=== PATIENT | female | born 1985 | race Caucasian/White ===

== ENCOUNTER 2022-10-26 17:07 | Emergency (ER) | payer BC, SELFPAY ==
--- NOTE | 2022-10-26 17:11 | ED.URI ---
HPI - URI/Sore Throat General Chief Complaint: Upper Respiratory Infection Stated Complaint: sob Time Seen by Provider: 10/26/22 17:40 Source: patient and RN notes reviewed Mode of arrival: ambulatory Limitations: no limitations History of Present Illness HPI Narrative: 37-year-old female presents with concern shortness of breath nasal congestion reports 2 week history of flu-like symptoms. She reports history of COPD, she has been hospitalized before for breathing problems. She reports she is out of her control medicine albuterol. MD elicited complaint: cough and sore throat Related Data Allergies Allergy/AdvReac Type Severity Reaction Status Date / Time No Known Allergies Allergy Verified 10/26/22 17:42 Review of Systems Review of Systems: CONSTITUTIONAL: Reports malaise. Denies chills, sweats, or fever. EYES: Denies visual changes, redness, or discharge. ENT: Reports rhinorrhea, congestion. Denies sinus pain, otalgia and sore throat. CARDIOVASCULAR: Denies chest pain, palpitations, or edema. RESPIRATORY: Reports cough, wheezing, dyspnea. GASTROINTESTINAL: Denies abdominal pain, nausea, vomiting, diarrhea SKIN: Denies rash or itching. MUSCULOSKELETAL: Denies myalgia. NEUROLOGIC: Denies headache. All systems reviewed & are unremarkable except as noted in HPI and below PMFSH Comments At time of signature, agree with nursing past medical, surgical, social and family history. There is no relevant family history pertinent to the presenting complaint Exam Narrative: GENERAL: Nontoxic-appearing and in no acute distress. HEAD: Normocephalic EYES: PERRLA, conjunctivae clear ENT: Nares clear, turbinates edematous and erythematous. Mucous membranes moist. TM pearly guerrero with dull light reflex bilaterally; no tragal tenderness. Oropharynx erythematous without lesions. Tonsils not enlarged and without exudate, no drooling, no hoarseness, no trismus, uvula midline. NECK: Supple. No lymphadenopathy CHEST: Wheeze throughout, scattered rhonchi, breath sounds equal. No rales, or stridor. No respiratory distress, speaks in full sentences. HEART: Regular rate and rhythm. No murmur heard. SKIN: Warm, dry, no rash. NEURO: Alert and oriented x3. PSYCH: Normal mood and affect Course Course Emergency Course: Patient is aware of diagnosis, understands and agrees to treatment plan. Anticipatory guidance given. Patient agrees to follow-up as directed and is aware of reasons to seek care at the emergency department. Portions of this record may have been created with voice recognition software Level of Care: Express Care Visit Vital Signs Vital signs: Reviewed. MDM - URI/Sore Throat MDM Narrative Medical decision making narrative: Differential diagnosis considered: Simental virus, strep pharyngitis, allergic rhinitis, upper respiratory tract infection, sinusitis, rhinosinusitis, nasopharyngitis. viral pharyngitis, otitis media, otitis externa, pneumonia, bronchitis, viral cough syndrome, viral syndrome, and influenza. Exam findings show no acute concerns or changes; patient is non-toxic appearing and is in no distress. Patient is appropriate for outpatient treatment and follow-up. Lab Data Attestation: I reviewed the patient's lab results. Critical Care Time Critical Care Time Critical Care Time: No Discharge Plan Discharge Clinical Impression: Acute exacerbation of chronic obstructive pulmonary disease Patient Disposition: Home, Self-Care Condition: Stable Instructions: Antibiotic Form, How to Stop Smoking (ED) Additional Instructions: Take medications as prescribed Cough syrup may cause drowsiness; avoid driving or take it at night time. Continue to Use inhaler as needed for cough, wheezing, shortness of breath or chest tightness. Seizure control medicine as prescribed Also, recommend symptomatic treatment includes: rest, fluids, and increase humidity of the air at home. Recommend Acetaminophen as directed on the jong
[2022-10-26 17:32] VITALS: BP 130/80; PULSE 102; RESP 16; TEMP 35.9; O2SAT 91
== END 2022-10-26 18:02 | disposition home or self-care (01) ==
PROVIDERS: Emergency Provider Nurse Practitioner
DX: J44.1 Chronic obstructive pulmonary disease with (acute) exacerbation (principal)
CPT/HCPCS: 99203; G0463

== ENCOUNTER 2023-08-29 17:42 | Emergency (ER) | payer BC, SELFPAY ==
[2023-08-29 18:04] VITALS: BP 129/52; PULSE 105; RESP 16; TEMP 36.3; O2SAT 97
--- NOTE | 2023-08-29 18:08 | ED.SKABFB ---
HPI - Skin/Abscess/Foreign Bdy General Chief complaint: Skin/Abscess/Foreign Body Stated complaint: Right Knee/Leg Irritation Time Seen by Provider: 08/29/23 18:05 Source: patient Mode of arrival: ambulatory Limitations: no limitations History of Present Illness HPI narrative: Preeti is a 38-year-old female patient presenting to the clinic today with complaints right leg swelling and redness times 2-3 days. States that the leg feels fevers however she denies any known fever or chills. She denies any chest pain or shortness of breath. 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 Took a 1000 mg of ibuprofen 2 hours prior to arrival. Rates pain 07/02. Related Data Home Medications Medication Instructions Recorded Confirmed albuterol sulfate 90 mcg/actuation See Rx Instructions .Route .COMPLEX 08/29/23 08/29/23 aerosol inhaler budesonide-formoterol HFA 160 2 puff inhalation BID 08/29/23 08/29/23 mcg-4.5 mcg/actuation aerosol inhaler (Symbicort) Allergies Allergy/AdvReac Type Severity Reaction Status Date / Time No Known Allergies Allergy Verified 08/29/23 18:19 Review of Systems Review of Systems: Pertinent positives per HPI. Patient denies any fever, chills, rash, headache, visual changes, dizziness, cough, runny nose, sore throat, shortness of breath, chest pain, palpitations, nausea, vomiting, diarrhea, constipation, abdominal pain, or any urinary issues. PMFSH Comments At the time of my signature, I reviewed and agree with the nursing past medical, surgical, social, and family history. There is no relevant family history pertinent to the patient complaint. Exam Narrative: General: Well-developed, well nourished, in no apparent distress Head: Normocephalic, atraumatic. Cardio: Regular rate and rhythm, s1 and s2 normal, no murmur appreciated. Resp: Clear to auscultation bilaterally, no rhonchi, rales, wheezing or rubs. Musculoskeletal: No deformity, redness and swelling noted to the right thigh and right lower leg, grossly normal range of motion, muscle strength strong and equal, peripheral pulse strong, 2+ edema, no cyanosis, normal gait and station Course Course Emergency Course: Portions of this record may have been created with voice recognition software. Level of Care: Express Care Visit Vital Signs Vital signs: Vital Signs Temperature 36.3 C L 08/29/23 18:04 Pulse Rate 105 H 08/29/23 18:04 Respiratory Rate 16 08/29/23 18:04 Blood Pressure 129/52 L 08/29/23 18:04 Pulse Oximetry 97 08/29/23 18:04 Oxygen Delivery Room Air 08/29/23 18:04 Temperature 36.3 C L 08/29/23 18:04 Pulse Rate 105 H 08/29/23 18:04 Respiratory Rate 16 08/29/23 18:04 Blood Pressure 129/52 L 08/29/23 18:04 Pulse Oximetry 97 08/29/23 18:04 Oxygen Delivery Room Air 08/29/23 18:04 Vital signs reviewed Transfer Transfered to: [place] Transportation: Other (Private car) Transfer rationale: Right lower extremity cellulitis, bilateral hand swelling Accepting physician: Dr. Gaspar Transfer comments: private car MDM - Skin/Abscess/Foreign Bdy MDM Narrative Medical decision making narrative: At the time of visit patient is resting comfortably on exam table. Patient has right upper and lower leg cellulitis as well as bilateral hand swelling. Recommend transfer to the ER for further evaluation. Patient agrees to transfer. Contacted Lopez TENA at [facility] and report was given for continuity of care and Dr. Gaspar accepts patient for transfer. Differential Diagnosis Differential diagnosis: Likely abscess of skin or subcutaneous tissue, viral exanthem, cellulitis and contact dermatitis Discharge Plan Discharge Clinical Impression: Cellulitis, Bilateral hand swelling Patient Disposition: Acute Care Hospital Condition: Stable Prescriptions: No Action albuterol sulfate 90 mcg/actuation HFA aerosol inhaler See Rx Instructions
== END 2023-08-29 18:08 | disposition short-term general hospital (02) ==
LOC: EXPCOLL 17:45
PROVIDERS: Emergency Provider Nurse Practitioner Family
DX: L03.115 Cellulitis of right lower limb (principal); R22.33 Localized swelling, mass and lump, upper limb, bilateral; I10 Essential (primary) hypertension; J44.9 Chronic obstructive pulmonary disease, unspecified
CPT/HCPCS: 99212; G0463

== ENCOUNTER 2023-08-29 21:13 | Emergency (ER) | payer BC, SELFPAY ==
[2023-08-29 21:23] VITALS: BP 150/95; PULSE 112; RESP 19; TEMP 36.9; O2SAT 98
--- NOTE | 2023-08-29 21:31 | ED.SKABFB ---
HPI - Skin/Abscess/Foreign Bdy General Chief complaint: Skin/Abscess/Foreign Body <Cookie Acosta APRN - Last Filed: 08/30/23 00:47> Stated complaint: possible cellulitis <Cookie Acosta APRN - Last Filed: 08/30/23 00:47> Time Seen by Provider: 08/29/23 21:31 <Cookie Acotsa APRN - Last Filed: 08/30/23 00:47> Source: patient <Cookie Acosta APRN - Last Filed: 08/30/23 00:47> Mode of arrival: ambulatory <Cookie Acosta APRN - Last Filed: 08/30/23 00:47> Limitations: no limitations <Cookie Acosta APRN - Last Filed: 08/30/23 00:47> History of Present Illness HPI narrative: patient is a pleasant 38-year-old female presents from the urgent care for evaluation of cellulitis to the left lower leg. patient states that she has had increase in swelling/redness/warmth to the RLE for about 3 days. she states that she always has swelling to her lower legs chronically but it is not usually like this. she states it is extremely painful. She also feels like she has increase in swelling to both of her hands. she denies any fever, chills, chest pain, shortness of breath, numbness/tingling to the BLE, recent fall/injury, hx of DVT, recent prolonged periods of immobilization. She states she has a long standing hx of IV drug use but has been clean for 3 years. she has many chronic scars to her lower legs. denies increased pain in the right calf area. <Cookie Acosta APRN - Last Filed: 08/30/23 00:47> Related Data Home medications: Home Medications Medication Instructions Recorded Confirmed albuterol sulfate 90 mcg/actuation See Rx Instructions .Route .COMPLEX 08/29/23 08/29/23 aerosol inhaler budesonide-formoterol HFA 160 2 puff inhalation BID 08/29/23 08/29/23 mcg-4.5 mcg/actuation aerosol inhaler (Symbicort) <Cookie Acosta APRN - Last Filed: 08/30/23 00:47> Allergies/Adverse reactions: Allergies Allergy/AdvReac Type Severity Reaction Status Date / Time No Known Allergies Allergy Verified 08/29/23 18:19 <Cookie Acosta APRN - Last Filed: 08/30/23 00:47> Review of Systems Review of Systems: CONSTITUTIONAL: Denies fever, chills, or sweats. EYES: Denies visual changes, redness, or discharge. ENT: Denies rhinorrhea, congestion, sore throat, or otalgia. CARDIOVASCULAR: Denies chest pain, palpitations, or edema. RESPIRATORY: Denies cough or dyspnea. GASTROINTESTINAL: Denies abdominal pain, nausea, vomiting, or diarrhea. GENITOURINARY: Denies dysuria or hematuria. SKIN: Denies rash or itching.redness/warmth/swelling to right lower leg. MUSCULOSKELETAL: + pain/swelling/redness/warmth to the RLE just below thigh to her foot. bilateral hand swelling NEUROLOGIC: Denies headache, numbness, or weakness. PSYCHIATRIC: Denies anxiety or depression. <Cookie Acosta APRN - Last Filed: 08/30/23 00:47> All systems reviewed & are unremarkable except as noted in HPI and below <Cookie Acosta APRN - Last Filed: 08/30/23 00:47> Exam Narrative: GENERAL: Well-appearing, well-nourished, overweight. HEAD: Normocephalic, atraumatic. EYES: PERRLA and EOMI. ENT: Nares clear, no rhinorrhea or epistaxis. Mucous membranes moist. NECK: Supple. CHEST: Clear to auscultation. No respiratory distress. HEART: increased rate and regular rhythm. No murmur heard. Normal peripheral pulses. 2+ pedal pulse bilaterally ABDOMEN: Soft, nontender, nondistended, normal active bowel sounds. EXTREMITIES: ROM intact to BLE. significant swelling/pain/erythema from the right middle thigh distally to the foot. tenderness throughout. Negative Johanna's sign bilaterally. 2+ edema to the RLE, there is trace/1+ edema to the LLE, and trace erythema of the left lower leg. able to move all toes bilaterally. SKIN: erythema/warmth to the RLE from mid thigh distally to foot. chronic scaring from sores to upper and lower extremities. there is no open wound noted at this time. NEURO: No focal deficits. Alert and orien
[2023-08-29 22:34] LABS: Basophils Percent Auto 0.2 % (0.2-1.2); Eosinophils Absolute Auto 0.2 K/mm3 (0-0.3); Eosinophils Percent Auto 1.7 % (0-4.4); Hemoglobin 14.2 g/dL (12.0-15.0); Immature Granulocyte Absolute 0.07 K/mm3 (0.00-0.031); Immature Granulocyte Percent A 0.5 % (0-0.5); Lymphocytes Absolute Auto 1.68 K/mm3 (0.9-3.2); Lymphocytes Percent Auto 12.7 % (18.3-44.2); Mean Corpuscular Hemoglobin 36.4 pg (26-34); Mean Corpuscular Volume 110.3 fl (80-100); Mean Platelet Volume 10.9 fl (7.4-10.4); Monocytes Percent Auto 7.7 % (2.6-8.5); Neutrophils Absolute Auto 10.2 K/mm3 (1.3-6.7); Neutrophils Percent Auto 77.2 % (45.5-73.1); Platelet Count Result 240 k/mm3 (150-375); Red Cell Distribution Width 14.6 % (11.5-14.5); White Blood Count 13.2 K/mm3 (4.5-10.0)
[2023-08-29 22:50] LABS: Prothrombin Time 13.2 Seconds (11.1-14.7)
[2023-08-29 22:51] LABS: Lactic Acid Reflex 2.2 mmol/L (0.7-2.0)
[2023-08-29 22:53] LABS: Alanine Aminotransferase 32 U/L (6-35); Albumin Level 3.9 g/dL (3.5-5.1); Alkaline Phosphatase 167 U/L (38-126); Anion Gap 11 mmol/L (8-16); Anisocytosis 1+ (NORMAL); Aspartate Amino Transferase 46 U/L (14-36); Bilirubin,Total 0.4 mg/dL (0.2-1.3); Blood Urea Nitrogen 7 mg/dL (7-17); Calcium 8.9 mg/dL (8.4-10.2); Carbon Dioxide 23 mmol/L (22-30); Chloride 102 mmol/L (98-107); Estimated CRCL calculation 99 ml/min; Estimated Glomerular Filt Rate > 60; Glucose 111 mg/dL (65-110); Large Platelets Present; Platelet Estimate Adequate (Adequate); Potassium 3.6 mmol/L (3.4-5.0); Sodium 136 mmol/L (137-145)
[2023-08-29 22:55] LABS: Macrocytosis 1+ (NORMAL); Schistocytes None Seen (NORMAL); Stomatocytes 1+ (NORMAL)
[2023-08-29 23:01] LABS: NT Pro B Type Natriuretic Pept 43 pg/mL (19.9-100)
[2023-08-29 23:06] LABS: Erythrocyte Sedimentation Rate 31 mm/hr (0-20)
[2023-08-29 23:10] LABS: CRP 16.6 mg/dL (<1.0)
[2023-08-29 23:14] LABS: D Dimer 0.98 ug/mL (<0.48)
[2023-08-29] MEDS: CEPHALEXIN 500 MG CAPSULE PO (23:49)
[2023-08-29] MEDS: DOXYCYCLINE HYCLATE 100 MG TABLET PO (23:49)
[2023-08-30 01:32] LABS: Reflex Lactic Acid Yes or No Add Lactic
== END 2023-08-29 23:54 | disposition left against medical advice (07) ==
PROVIDERS: Emergency Provider Nurse Practitioner
DX: L03.115 Cellulitis of right lower limb (principal); M79.604 Pain in right leg; R79.1 Abnormal coagulation profile
CPT/HCPCS: 36415; 80053; 83605; 83880; 85025; 85380; 85610; 85652; 86140; 87040; 99212; 99283; A9270; G0463

== ENCOUNTER 2024-03-08 08:49 | Emergency (ER) | payer BC, SELFPAY ==
[2024-03-08 08:54] VITALS: BP 116/99; PULSE 86; RESP 24; TEMP 36.4; O2SAT 93
--- NOTE | 2024-03-08 09:08 | ED.SOB ---
HPI - SOB/Dyspnea General Chief Complaint: Shortness of Breath/Dyspnea Stated Complaint: SOB Time Seen by Provider: 03/08/24 09:00 Source: patient Mode of arrival: ambulatory Limitations: no limitations History of Present Illness HPI Narrative: 38-year-old female with a history of asthma / COPD presented for complaint of shortness of breath, cough, and wheezing worsening over the past few days. She endorses yesterday she had difficulty just walking around her house. She states today she feels somewhat better. Has started using her nebulizer at home. States she is out of albuterol inhaler and Symbicort. Pt also states 2 days ago she filled amoxicillin which was prescribed about 2 weeks ago per dentist for a tooth. Reports cough and chest congestion for over one month. Endorses attempts to quit smoking, hx 1ppd, started nicotine patches. She denies fever, lethargy, nausea vomiting, diarrhea. No pcp. Related Data Home Medications Medication Instructions Recorded Confirmed albuterol sulfate 90 mcg/actuation See Rx Instructions .Route .COMPLEX 08/29/23 03/08/24 aerosol inhaler budesonide-formoterol HFA 160 2 puff inhalation BID 08/29/23 03/08/24 mcg-4.5 mcg/actuation aerosol inhaler (Symbicort) amoxicillin 500 mg capsule 500 mg DIRECTED 03/08/24 03/08/24 Allergies Allergy/AdvReac Type Severity Reaction Status Date / Time No Known Allergies Allergy Verified 08/29/23 18:19 Review of Systems Review of Systems: CONSTITUTIONAL: Denies body aches, fever, chills, or sweats. EYES: Denies visual changes, redness, or discharge. ENT: reports rhinorrhea, congestion, denies sore throat, or otalgia. CARDIOVASCULAR: Denies chest pain, palpitations, or edema. RESPIRATORY: Reports cough, sob, wheezing. GASTROINTESTINAL: Denies abdominal pain, nausea, vomiting, or diarrhea. SKIN: Denies rash, itching, or wounds. MUSCULOSKELETAL: Denies back pain, joint pain, or myalgia. NEUROLOGIC: Denies headache, numbness, tingling, or weakness. All systems reviewed & are unremarkable except as noted in HPI and below PMFSH Past Medical History Medical History (Updated 03/08/24 @ 09:18 by Jenny Irwin APRN) COPD (chronic obstructive pulmonary disease) Social History Social History (Updated 03/08/24 @ 09:19 by Jenny Irwin, [employer]) Smoking packs per day: 1 Smoking cigarettes per day: 20.0 Years smoked: 30 Smoking pack-years: 30.00 Smoking status: Current every day smoker Tobacco type: cigarettes Alcohol intake: current Drinks per week: 3 Substance use: former Substance use type: IV drugs Comments At time of signature, I have reviewed and agree with nursing past medical, surgical, social and family history unless otherwise noted. Please see nursing chart for further information. There is no relevant family history pertinent to the presenting complaint Exam Narrative: GENERAL: mildly ill-appearing, in no acute distress. Appears older than stated age EYES: EOMI. No redness or drainage. Conjunctivae normal. ENT: Mucous membranes pink and moist. poor dentition throughout. Reports antibiotic was for right upper dental pain, however no apparent swelling or erythema noted. No rhinorrhea. TMs normal bilaterally. Throat normal. Uvula midline. NECK: Normal AROM. Supple. CHEST: No respiratory distress. Wheezing to all ruffin. Speaks full sentences. HEART: Regular rate and rhythm. No murmur appreciated. ABDOMEN: Soft, nontender, nondistended, normal active bowel sounds. EXTREMITIES: Normal range of motion. No edema. SKIN: Warm, dry, no rash. Capillary refill normal. Normal skin turgor. NEURO: Alert and oriented x3. Gait steady. PSYCH: Normal affect. Course Course Emergency Course: Patient is aware of diagnosis, understands and agrees to treatment plan. Anticipatory guidance given. Patient agrees to follow-up as directed and is aware of reasons to seek care at the emergency department.
[2024-03-08 09:19] VITALS: O2SAT 95
== END 2024-03-08 09:19 | disposition home or self-care (01) ==
PROVIDERS: Emergency Provider Nurse Practitioner Family
DX: J45.901 Unspecified asthma with (acute) exacerbation (principal); F17.210 Nicotine dependence, cigarettes, uncomplicated; J44.9 Chronic obstructive pulmonary disease, unspecified
CPT/HCPCS: 99213; G0463

== ENCOUNTER 2024-05-27 19:40 | Emergency (ER) | payer OTHER, BC, SELFPAY ==
--- NOTE | 2024-05-27 19:45 | ED.GENADULT ---
HPI - General Adult General Chief complaint: Asthma Stated complaint: difficulty breathing,HX asthma,COPD,med refill Time Seen by Provider: 05/27/24 19:59 Source: patient, RN notes reviewed and old records reviewed Mode of arrival: ambulatory Limitations: no limitations History of Present Illness HPI narrative: 39-year-old female presents to the [facility] with requesting refills for her Symbicort and her albuterol inhaler. Reports that she has a ne for of her nebulizer solution, last time she used it with 2 days ago. States that she just ran out of her Symbicort even though she was prescribed on 08 March for 30 days supply. Patient reports that she does have an appointment on 22 June with a new primary care provider. Patient reports she is not having any distress at this time. Patient is also requesting a work note stating that she did call in for the last couple days. Patient is a current smoker Related Data Home Medications Medication Instructions Recorded Confirmed cetirizine 10 mg tablet 10 mg PO DAILY 05/27/24 05/27/24 Allergies Allergy/AdvReac Type Severity Reaction Status Date / Time No Known Allergies Allergy Verified 05/27/24 19:48 Review of Systems Review of Systems: All systems reviewed & are unremarkable except as noted in HPI and below Constitutional: Constitutional: Reports no additional constitutional complaints Eyes: Eyes: Reports no additional eye complaints ENT: Reports system reviewed and no additional complaints, except as documented Cardiovascular: Cardiovascular: Reports no additional cardiovascular complaints, Denies chest pain and Denies dyspnea Respiratory: Respiratory: Reports as per HPI, Reports chest congestion, Reports cough and Reports dyspnea Gastrointestinal: Gastrointestinal: Reports no additional gastrointestinal complaints, Denies abdominal pain, Denies nausea and Denies vomiting Musculoskeletal: Musculoskeletal: Reports no additional musculoskeletal complaints Integumentary/Breasts: Skin/Breast: Reports system reviewed and no additional complaints, except as docu Neurologic: Reports system reviewed and no additional complaints, except as documented Psychiatric: Psychiatric: Reports no additional psychiatric complaints Allergic/Immunologic: Allergic/Immunologic: Reports no additional allergic/immunologic complaints [facility] Past Medical History Medical History COPD (chronic obstructive pulmonary disease) Social History Social History Smoking packs per day: 1 Smoking cigarettes per day: 20.0 Years smoked: 30 Smoking pack-years: 30.00 Smoking status: Current every day smoker Tobacco type: cigarettes Alcohol intake: current Drinks per week: 3 Substance use: former Substance use type: IV drugs Comments At the time of my signature, I reviewed and agree with the nursing past medical, surgical, social, and family history. There is no relevant family history pertinent to the patient complaint. Exam Const: General: cooperative, healthy appearing, comfortable, no acute distress, well developed, alert and well nourished Nutritional Appearance: well nourished Orientation/consciousness: patient oriented x3 Limitations: no limitations HENMT: Head: normal to inspection Ears: hearing grossly normal bilaterally, external ears normal, TM's normal bilaterally, EAC's normal, mastoids normal and no periauricular adenopathy Face/Nose/Sinus: Normal external nose present, Normal nares present, Normal nasal mucous membranes and turbinates present, normal facial exam and face symmetric Face and sinus: normal facial exam and face symmetric Throat: posterior oropharynx normal, uvula midline and no uvular edema Eyes: General: appearance normal, both eyes and all related structures Alignment and Position: alignment normal Periorbital: periorbital findings normal
[2024-05-27 19:50] VITALS: BP 102/67; PULSE 100; RESP 16; TEMP 37.1; O2SAT 100
== END 2024-05-27 20:20 | disposition home or self-care (01) ==
PROVIDERS: Emergency Provider Nurse Practitioner
DX: J45.909 Unspecified asthma, uncomplicated (principal); J44.9 Chronic obstructive pulmonary disease, unspecified; F17.210 Nicotine dependence, cigarettes, uncomplicated
CPT/HCPCS: 99211; 99213; G0463

== ENCOUNTER 2025-03-31 19:31 | Emergency (ER) | payer OTHER, BC, SELFPAY ==
[2025-03-31 19:39] VITALS: BP 115/73; PULSE 68; RESP 16; TEMP 36.4; O2SAT 94
--- NOTE | 2025-03-31 19:46 | ED_ITS ---
HPI - Skin/Abscess/Foreign Bdy General Chief complaint: Skin/Abscess/Foreign Body Stated complaint: Insect Bite Time Seen by Provider: 03/31/25 19:46 Source: patient Mode of arrival: ambulatory Limitations: no limitations History of Present Illness HPI narrative: 39-year-old female presents with insect bite to right upper back. States that she was a mushroom hunting approximately 10 days ago. Found a tick on her belly button that she removed and has had no issues. About 48 hours after mushroom hunting and she found a tick on her right upper back. Removed it. Reports she is eye small kiana started around tick bite that has gotten progressively larger. Was told by a friend today that she needed to have it looked at. Nontender. Only complaint is itching. All systems reviewed and negative except as noted above. Related Data Home Medications ?Medication ?Instructions ?Recorded ?Confirmed ?Last Taken ?Type cetirizine 10 mg tablet 10 mg PO DAILY 05/27/24 05/27/24 Unknown History Allergies Allergy/AdvReac Type Severity Reaction Status Date / Time No Known Allergies Allergy Verified 03/31/25 19:34 Review of Systems Review of Systems: CONSTITUTIONAL: Denies fever, chills, or sweats. EYES: Denies visual changes, redness, or discharge. ENT: Denies rhinorrhea, congestion, sore throat, or otalgia. CARDIOVASCULAR: Denies chest pain, palpitations, or edema. RESPIRATORY: Denies cough or dyspnea. GASTROINTESTINAL: Denies abdominal pain, nausea, vomiting, or diarrhea. GENITOURINARY: Denies dysuria or hematuria. SKIN: Reports tick bite to right upper back with itching. MUSCULOSKELETAL: Denies back pain, joint pain, or myalgia. NEUROLOGIC: Denies headache, numbness, or weakness. PSYCHIATRIC: Denies anxiety or depression. All other systems reviewed are negative, except as documented in HPI. [facility] Past Medical History Medical History COPD (chronic obstructive pulmonary disease) Social History Social History Smoking packs per day: 1 Smoking cigarettes per day: 20.0 Years smoked: 30 Smoking pack-years: 30.00 Smoking status: Current every day smoker Tobacco type: cigarettes Alcohol intake: current Drinks per week: 3 Substance use: former Substance use type: IV drugs Comments At time of signature, agree with nursing past medical, surgical, social and family history. There is no relevant family history pertinent to the presenting complaint. Exam Narrative: GENERAL: This is a well-nourished, well-developed patient, in no apparent distress. HEAD: normocephalic, atraumatic. EYES: PERRL. Sclera clear/white. Vision is grossly intact. EARS: External ears normal NOSE: External nose normal NECK: Neck supple, non-tender without lymphadenopathy, masses or thyromegaly. CARDIOVASCULAR: Regular rate and rhythm without murmurs, gallops, or rubs. RESPIRATORY: Clear to auscultation. Breath sounds equal bilaterally. No wheezes, rales, or rhonchi. SKIN: warm, Dry, intact, good texture and turgor. bull's-eye to right upper back approximately 9 cm diameter. Scabbed take bite to center with central clearing and erythema around the edges. NEURO: awake, alert, and oriented to person, place and time. There were no obvious focal neurologic abnormalities. EXTREMITIES: No joint tenderness, effusion, or edema noted. Course Course Level of Care: Express Care Visit Vital Signs Vital signs: Vital Signs Temperature 36.4 C L 03/31/25 19:39 Pulse Rate 68 03/31/25 19:39 Respiratory Rate 16 03/31/25 19:39 Blood Pressure 115/73 03/31/25 19:39 Pulse Oximetry 94 03/31/25 19:39 Oxygen Delivery Room Air 03/31/25 19:39 Temperature 36.4 C L 03/31/25 19:39 Pulse Rate 68 03/31/25 19:39 Respiratory Rate 16 03/31/25 19:39 Blood Pressure 115/73 03/31/25 19:39 Pulse Oximetry 94 03/31/25 19:39 Oxygen Delivery Room Air 03/31/25 19:39 Reviewed MDM - Skin/Abscess/Foreign Bdy MDM Narrative Medical decision making narrative: tick bite approximately 10 days ago per, pulse eye to right upper back. Will treat with doxycycline And triamcinolone for itching. Discussed symptoms of Lyme disease. Recommend follow-up with primary care physician if she is experiencing any of the symptoms. Patient is alert, nontoxic. Discharge Plan Discharge Clinical Impression: Tick bite of back Patient Disposition: Home Condition: Stable Instructions: Insect Bite or Sting (ED) Additional Instructions: Take antibiotic as prescribed until gone. Take Tylenol or ibuprofen every 6-8 hours as needed for pain. Apply steroid cream sparingly to affected area to treat itching. If you develop fever, headache, body aches, fatigue, joint pain follow-up with your primary care physician for Lyme disease testing. Patient Language: Luxembourgish Prescriptions: New doxycycline hyclate 100 mg capsule 100 mg PO BID 10 Days Qty: 20 0RF triamcinolone acetonide 0.1 % cream 1 applic topical BID PRN (Reason: insect bite) Qty: 30 0RF No Action cetirizine 10 mg tablet 10 mg PO DAILY albuterol sulfate 90 mcg/actuation HFA aerosol inhaler 2 puff inhalation QID PRN (Reason: shortness of breath or wheezing) Qty: 6.7 0RF budesonide-formoterol [Symbicort] 160-4.5 mcg/actuation HFA aerosol inhaler 2 puff INHALATION BID Qty: 10.2 0RF Follow-up/Referrals: PHYSICIAN,DIRECTOR OF OCCUPATIONAL THERAPY [Primary Care Provider] - Time of Disposition: 19:58
== END 2025-03-31 20:03 | disposition home or self-care (01) ==
PROVIDERS: Emergency Provider Nurse Practitioner Family
DX: S20.461A Insect bite (nonvenomous) of right back wall of thorax, initial encounter (principal); W57.XXXA Bitten or stung by nonvenomous insect and other nonvenomous arthropods, initial encounter; J44.9 Chronic obstructive pulmonary disease, unspecified; F17.210 Nicotine dependence, cigarettes, uncomplicated
CPT/HCPCS: 99213; G0463

== ENCOUNTER 2025-05-02 19:07 | Emergency (ER) | payer OTHER, BC, SELFPAY ==
--- NOTE | 2025-05-02 19:13 | ED_ITS ---
HPI - Extremity Problem General Chief complaint: Skin/Abscess/Foreign Body Stated complaint: swollen legs Time Seen by Provider: 05/02/25 19:13 Source: patient Mode of arrival: ambulatory Limitations: no limitations History of Present Illness HPI Narrative: Preeti is a 40-year-old female patient presenting to the clinic today with complaints of bilateral leg swelling, pain, and redness x1 day. She reports she had fever yesterday but has been taking ibuprofen and has not had fever today. History of IV drug use. Related Data Home Medications ?Medication ?Instructions ?Recorded ?Confirmed ?Last Taken ?Type cetirizine 10 mg tablet 10 mg PO DAILY 05/27/24 05/27/24 Unknown History Allergies Allergy/AdvReac Type Severity Reaction Status Date / Time No Known Allergies Allergy Verified 05/02/25 19:23 Review of Systems Review of Systems: Pertinent positives per HPI. Patient denies any fever, chills, rash, headache, visual changes, dizziness, cough, runny nose, sore throat, shortness of breath, chest pain, palpitations, nausea, vomiting, diarrhea, constipation, abdominal pain, or any urinary issues. [facility] Past Medical History Medical History COPD (chronic obstructive pulmonary disease) Social History Social History Smoking packs per day: 1 Smoking cigarettes per day: 20.0 Years smoked: 30 Smoking pack-years: 30.00 Smoking status: Current every day smoker Tobacco type: cigarettes Alcohol intake: current Drinks per week: 3 Substance use: former Substance use type: IV drugs Comments At the time of my signature, I reviewed and agree with the nursing past medical, surgical, social, and family history. There is no relevant family history pertinent to the patient complaint. Exam 2 Narrative: General: Well-developed, well nourished, in no apparent distress Head: Normocephalic, atraumatic. Cardio: Regular rate and rhythm, s1 and s2 normal, no murmur appreciated. Resp: Clear to auscultation bilaterally, no rhonchi, rales, wheezing or rubs. Musculoskeletal: No deformity, no obvious open wounds, bilateral lower extremity redness, erythema, and swelling from her feet up to her knees, tender to palpation over bilateral lower extremities, grossly normal range of motion, muscle strength strong and equal, peripheral pulse strong, trace to 1+ pitting edema, no cyanosis, normal gait and station Course Course Emergency Course: Portions of this record may have been created with voice recognition software. Level of Care: Express Care Visit Vital Signs Vital signs: Vital Signs Temperature 36.9 C 05/02/25 19:23 Pulse Rate 100 05/02/25 19:23 Respiratory Rate 20 05/02/25 19:23 Blood Pressure 102/73 05/02/25 19:23 Pulse Oximetry 100 05/02/25 19:23 Oxygen Delivery Room Air 05/02/25 19:23 Temperature 36.9 C 05/02/25 19:23 Pulse Rate 100 05/02/25 19:23 Respiratory Rate 20 05/02/25 19:23 Blood Pressure 102/73 05/02/25 19:23 Pulse Oximetry 100 05/02/25 19:23 Oxygen Delivery Room Air 05/02/25 19:23 Vital signs reviewed MDM - Extremity (Nontraumatic) MDM Narrative Medical decision making narrative: At the time of visit patient is resting comfortably on the exam table. Patient appears to be nontoxic. Plan: I suspect patient has bilateral lower extremity cellulitis. Vital signs are stable at this time. She has had fever this been controlled by ibuprofen. Recommend transfer to the emergency room for further evaluation and IV antibiotics due to the extent of cellulitis in her lower extremities and history of drug use. High risk for multi-drug resistance. Patient agrees to go to [place] emergency room. Contacted Caridad WATSON at [facility], report was given for continuity of care, and she accepts patient for transfer. Differential Diagnosis Differential diagnosis: Likely gout, cellulitis, superficial thrombophlebitis, lower extremity edema, deep vein thrombosis of lower extremity and other (Sepsis) Discharge Plan Discharge Clinical Impression: Bilateral cellulitis of lower leg Patient Disposition: Acute Care Hospital Condition: Stable Patient Language: Ethiopian Prescriptions: No Action cetirizine 10 mg tablet 10 mg PO DAILY budesonide-formoterol [Symbicort] 160-4.5 mcg/actuation HFA aerosol inhaler 2 puff INHALATION BID Qty: 10.2 0RF doxycycline hyclate 100 mg capsule 100 mg PO BID 10 Days Qty: 20 0RF triamcinolone acetonide 0.1 % cream 1 applic topical BID PRN (Reason: insect bite) Qty: 30 0RF Follow-up/Referrals: UNKNOWN,DOCTOR [Primary Care Provider] - Time of Disposition: 19:35 Quality NIHSS Nursing Documentation ED NIHSS nursing documentation: reviewed/agree
[2025-05-02 19:23] VITALS: BP 102/73; PULSE 100; RESP 20; TEMP 36.9; O2SAT 100
== END 2025-05-02 19:30 | disposition short-term general hospital (02) ==
PROVIDERS: Emergency Provider Nurse Practitioner Family
DX: L03.116 Cellulitis of left lower limb (principal); L03.115 Cellulitis of right lower limb; F19.90 Other psychoactive substance use, unspecified, uncomplicated; F17.210 Nicotine dependence, cigarettes, uncomplicated; J44.9 Chronic obstructive pulmonary disease, unspecified
CPT/HCPCS: 99212; G0463